=== PATIENT | female | born 1990 | race Caucasian/White ===

== ENCOUNTER 2016-12-07 06:42 | Day surgery (SDC) | payer OTHER ==
[2016-12-07] VITALS (11 sets, daily range): BP systolic 93–136; BP diastolic 48–86; PULSE 70–124; RESP 14–22; O2SAT 97–98
[~2016-12-07] VITALS: Ht 157.5 cm; Wt 76.2 kg
[~2016-12-07 06:42] MED LIST: MEDR150D9 IM
[2016-12-07] MEDS ORDERED: Dexamethasone 4 mg/mL Inj ONE (06:43)
[2016-12-07] MEDS ORDERED: fentaNYL-PF 50 mCg/mL 2 mL Inj ONE (06:43)
[2016-12-07] MEDS ORDERED: Ondansetron 2 mg/mL 2 mL Inj ONE (06:43)
[2016-12-07] MEDS ORDERED: Ketamine 10 mg/mL 20 mL Inj ONE (06:43)
[2016-12-07] MEDS ORDERED: Propofol 10,000 mCg/mL 20 mL Inj ONE (06:43)
[2016-12-07] MEDS: Lactated Ringer's 1,000 ML IV SCH ×3 (07:08→15:33)
--- NOTE | 2016-12-07 07:37 | PCM.HPANE ---
Patient Data Surgeon Admitting Provider: Attending Provider:Bart Thorne MD Primary Care Physician:Nathaly Person MD Other Provider:[facility] Reason for Visit Gallstones Ht/WT & BMI Height (Feet): 5 Height (Inches): 2 Weight (Kilograms): 76.2 Body Mass Index 30.00 Allergies Coded Allergies: promethazine (Verified Allergy, Severe, AGITATION, 12/04/16) Potassium Clavulanate (Verified Allergy, Unknown, UNKNOWN, 12/04/16) Sulfa (Sulfonamide Antibiotics) (Verified Allergy, Unknown, UNKNOWN, ) amoxicillin trihydrate (Verified Allergy, Unknown, UNKNOWN, 12/04/16) metoclopramide (Verified Allergy, Unknown, UNKNOWN, 12/04/16) Past Anesthesia History Anesthesia History: Positive for:: Fam Anesthesia Reaction ("Mom takes a lot of medication to stay asleep in procedure."), Denies:: Abnormal Airway, Anesthesia Reactions, Difficult Intubation, Fam Malignant Hypertherm, Malignant Hyperthermia Diabetes History Hx Diabetes?: No MRSA MRSA: No Medications Hypertension Medication: No Home Meds Incl Beta Maria Guadalupe: No Reported Medications Medroxyprogesterone Acetate (Depo-Provera)150 Mg/1 Ml [id number] Mg IM Q 3 MONTHS 12/04/16 Discontinued Reported Medications Acetaminophen 500 Mg Oixykj590 Mg PO Q6H PRN For Pain 07/16/16 Vit No.124/Iron/FA ( Vitamin Tablet)27 Mg Iron-800 Mcg Tablet1 Each PO DAILY 07/16/16 Hyoscyamine SL (Levsin SL)0.125 Mg Tab.subl0.125 Mg SL 01/26/14 Sertraline HCl (Zoloft)100 Mg [id number] Mg PO DAILY 30 Days Ref 0 01/26/14 Discontinued Scripts Hydrocodone-Acetaminophen 5-325 mg 1 Each Tablet1-2 Tablet PO Q4H PRN For Pain # 30 TABLET Prov:Alfred Kwok MD 07/17/16 Ibuprofen 600 Mg Blpira025 Mg PO Q6H PRN For Mild Pain #30 TABLET Prov:Alfred Kwok MD 07/17/16 History History of ENT Problems?: No HEENT History: Denies:: Abnormal Airway Difficult Intubation Hearing Problem Denture Type: None Teeth Condition: Within Normal Limits Hx of Heart Problems?: No Cardiovascular History: Denies:: Congestive Heart Failure Heart Murmur Hypertension Hx of Respiratory Problem?: No Respiratory History: Positive for:: Asthma ("I don't need my inhaler often" "exercise induced") Denies:: Tuberculosis Use of C-PAP Machine Hx Neurologic Problems?: Yes Neurological History: Positive for:: Headaches Denies:: CVA Hx of GI Problems?: Yes Hx of Problems?: Yes Other Pertinent History: SIMPLE RENAL CYST FOUND INCIDENTALLY ON U/S Female Hx: Denies:: Currently Skin History: Denies:: History Skin Disorders? Pressure Ulcers Hx Musculoskeletal Problems?: Yes Musculoskeletal History: Positive for:: Musculoskeletal Trauma (S/P RT KNEE SCOPE) Denies:: Back Injury (C/OF BACK PAIN) Hx of Psycho/Social Problems?: Yes Psycho Social History: Positive for:: Anxiety Hx Depression Hx Surgeries?: Yes (R knee) Hx Any Other Health Problems?: Yes Other History: Positive for:: Hospitalization ([facility]ILDBIR[facility]) Denies:: Cancer Endocrine Disease Thyroid Disease History Blood Transfusions: Denies:: Blood Transfusions Hx Diabetes: No Hx Alcohol Use: NoHx Substance Use: NoHave You Smoked inLast 12 mo: No Stop/Bang S-Snoring: Do You Snore Loudly: No T-Tired: feel tired, fatigued: Yes O-Obsered: Observed not breath: No P-Blood Pressure: treated: No B- Body Mass Index > 35 kg/m2: No A- Age over 50: No N- Neck Large Circumference: No G- Gender Male: No XIAO Total Score: 1 XIAO Risk Assessment: Low Risk, <3 Yes Risk Assessment Category Category 1A: Patient has history of documented sleep apnea, and HAS NOT received any narcotic, sedative or anesthesia administration during this stay. Category 1B: Patient has history of documented sleep apnea, and HAS received any narcotic , sedative or anesthesia administration during this stay Category 2: Patient has SUSPECTED Obstructive Sleep Apnea, and HAS received any narcotic , sedative or anesthesia administration during this stay. Category 3: Patient has SUSPECTED Obstructive Sleep Apnea and HAS NOT received narcotic, sedative or anesthesia administration during this stay. Category 4: Outpatient in Procedural Areas with known sleep apnea or who screen positive for High Risk via the STOP/BANG questionnaire. Exam Exam Vital Signs Vital Signs Date Time Temp Pulse Resp B/P Pulse Ox O2 Delivery O2 Flow Rate FiO2 5/12/17 07:13 36.5 98 16 98 Room Air General Appearance: Alert, Oriented X3, Cooperative, No Acute Distress HEENT/AIRWAY: MP 2 Lungs: Clear to Auscultation, Normal Air Movement Heart: Exam Unremarkable, Regular Rate/Rhythm, No Murmurs/Rubs/Gallops Meds/Labs/Diagnostics Admission Meds Current Medications Lactated Ringer's (Lr) 1,000 ml @ 120 mls/hr Q8H20M IV Last administered on 07:08; Start 12/07/16 at 05:00; Stop 12/07/16 at 13:19 Gabapentin (Neurontin) 600 mg PREOP ONCE PO Last administered on 12/07/16 07: 09; Start 12/07/16 at 06:00; Stop 12/07/16 at 06:01; Status DC Celecoxib (CeleBREX) 200 mg PREOP ONCE PO Last administered on 12/07/16 07:09 ; Start 12/07/16 at 06:00; Stop 12/07/16 at 06:01; Status DC Scopolamine (Transderm-Scop Patch) 1.5 mg ONCE ONCE TOPICAL Last administered on 12/07/16 07:09; Start 12/07/16 at 05:00; Stop 12/07/16 at 05:01; Status DC Plan Impression Patient chart reviewed, patient interviewed and anesthestic plan with risks, benefits, and alternatives discussed, and informed consent obtained. ASA Physical Status: ASA1 Normal Healthy Anesthetic Plan: GA Bene/Risks/Altern/Consents: Yes HP Complete Prior to Induction: Yes Donis Patel MD December 07, 2016 07:37
[2016-12-07] MEDS ORDERED: Lactated Ringer's 1,000 ML IV SCH (09:01)
[2016-12-07] MEDS ORDERED: Lactated Ringer's 500 ML IV PRN (09:01)
[2016-12-07] MEDS ORDERED: Bupivacaine-MPF 0.25%/EPI 30 mL Inj INFILTRATE ONE (09:03)
[2016-12-07] MEDS ORDERED: Phenylephrine 10,000 mCg/mL Inj IVPUSH PRN (09:05)
[2016-12-07] MEDS ORDERED: Dexamethasone 4 mg/mL Inj IVPUSH PRN (09:05)
[2016-12-07] MEDS ORDERED: HYDROmorphone 1 mg/mL Inj IVPUSH PRN (09:05)
[2016-12-07] MEDS ORDERED: Ondansetron 2 mg/mL 2 mL Inj IVPUSH PRN (09:05)
[2016-12-07] MEDS ORDERED: EPHEDrine Sulfate 50 mg/mL Inj IVPUSH PRN (09:05)
[2016-12-07] MEDS: fentaNYL-PF 50 mCg/mL 2 mL Inj IVPUSH PRN ×4 (10:23→11:49)
--- NOTE | 2016-12-07 10:34 | PCM.ANEP1 ---
Post Anesthesia Phase 1 PACU Phase 1 Assessment Vital Signs Vital Signs Date Time Temp Pulse Resp B/P Pulse Ox O2 Delivery O2 Flow Rate FiO2 12/07/16 10:05 74 22 96/50 97 Room Air 12/07/16 09:55 70 22 93/48 97 Room Air 12/07/16 09:45 78 20 98/48 98 Simple Mask 12/07/16 09:40 37.1 84 19 98/52 98 Simple Mask 8 12/07/16 07:13 36.5 98 16 98 Room Air Anesthetic Administered: GA Level of Alertness: Awake, talking DAVIS's with Equal Strength: Yes Pain: No Nausea or Vomiting: No Cardiovascular Function and Hy: Yes Airway Device: Oralpharangeal Airway Oxygen Delivery: Simple Mask Lungs: Clear to Auscultation, Normal Air Movement Dermatome Level: Full Sensation Complications: No Follow up Care: No Patient Instructions Provided: Yes Donis Patel MD December 07, 2016 10:34
[2016-12-07 12:21] LABS: Mean Corpuscular Hemoglobin 27.9 pg (27.0-35.0); Mean Corpuscular Volume 85.3 fL (81-100)
[2016-12-07] MEDS ORDERED: Acetaminophen IV 1,000 MG in IV Premix 1 EACH IV ONE (12:40)
[2016-12-07] MEDS ORDERED: Dextrose 5% Lactated Ringer's 1,000 ML IV SCH (13:08)
[2016-12-07] MEDS ORDERED: Ketorolac 15 mg/mL Inj IVPUSH ONE (13:10)
[2016-12-07] MEDS ORDERED: HYDROmorphone 0.5 mg/0.5 mL iSecure Syringe IVPUSH PRN (13:10)
--- NOTE | 2016-12-07 16:22 | OP ---
[address] [address] OPERATIVE REPORT PATIENT: JAKOB NOLEN : 1990 MR#: [id number] ADMIT: 12/07/2016 JOB ID: [id number] DATE OF SURGERY: 12/07/2016 ANESTHESIA: General. PREOPERATIVE DIAGNOSIS(ES): Symptomatic cholelithiasis. POSTOPERATIVE DIAGNOSIS(ES): Symptomatic cholelithiasis. OPERATIVE PROCEDURE: Laparoscopic cholecystectomy. SURGEON: Bart Thorne M.D. CAUSTICS LOADER: None. COMPLICATIONS: None. ESTIMATED BLOOD LOSS: Less than 5 mL. CONDITION: Satisfactory. SPECIMEN: Gallbladder. FINDINGS: The gallbladder appeared unremarkable. INDICATIONS/SIGNIFICANT HISTORY: The patient is a 26-year-old female who since giving four months ago has been experiencing episodic postprandial right upper quadrant abdominal pain. An ultrasound was obtained which showed cholelithiasis. She was referred to me and I recommended cholecystectomy. OPERATIVE TECHNIQUE: The patient was taken into the operating room and placed in the supine position. General anesthesia was administered. The abdomen was prepped and draped in a standard surgical fashion and a procedure pause was performed. Entry was gained into the abdomen through a supraumbilical incision using a 10 mm Optiview trocar. Pneumoperitoneum was achieved without complication. Local anesthetic was injected, followed by insertion of 5 mm ports in the subxiphoid as well as two in the right upper quadrant. The gallbladder was grasped and retracted cephalad. Dissection was begun to identify the cystic duct and cystic artery. Critical view of safety was achieved. Three clips placed on the duct and one on the artery. The duct was taken sharply and the artery with electrocautery. The remainder of the dissection of the gallbladder off the cystic plate was then completed. There was a little bit of bleeding from the lower portion of the cystic plate which was controlled with electrocautery. The gallbladder was then removed through the umbilical port site. The fascia there was closed with 0 PDS suture with a laparoscopic suture passer. The lateral ports were then removed under direct visualization followed by release of pneumoperitoneum and removal of the remaining port. The entire procedure was well tolerated without complication.
--- NOTE | 2016-12-10 14:50 | PATH ---
SURGICAL PATHOLOGY Attending Physician:Bart Thorne MD CASE STATUS: Signed Out PATIENT NAME: JAKOB NOLEN PID: [id number] : 1990 DATE COLLECTED:12/07/2016 15:27 SPECIMEN: Gallbladder CLINICAL HISTORY: GALLSTONES 1. GALLBLADDER FINAL DIAGNOSIS: 1.GALLBLADDER: CHOLELITHIASIS WITH ASSOCIATED MILD CHRONIC CHOLECYSTITIS. ICD10 CODE K80.66 GROSS DESCRIPTION: The specimen is received in one formalin filled container labeled with the patient's name, sublabeled "gallbladder" and consists of an intact 8.0 x 3.0 x 3.0 CM gallbladder. The serosa is smooth. The wall is 0.2-0.3 CM in thickness. The mucosa is a dark green in color. The lumen contains a dark green mucoid material and approximately 10 yellow-caldwell cobblestone calculi which range in size from 0.1-0.4 CM in greatest dimension. 5 direct customer service representative sections are submitted in one cassette. 12/07/2016 DAC MICRO DESCRIPTION: See diagnosis. ICD-9 CODES: CPT CODES: 1: 56884 Electronically Signed Out Ajith Chance MD [facility] [address], [place] [address] Technical component performed at [facility], [facility] [address], [place], [address]
== END 2016-12-07 23:59 | disposition home or self-care (01) ==
LOC: SAS 06:42
PROVIDERS: ATTEND General Practice
PROC: 0FT44ZZ Resection of Gallbladder, Percutaneous Endoscopic Approach (ICD-10-PCS; principal; 2016-12-07 08:30)
DX: K80.20 Calculus of gallbladder without cholecystitis without obstruction (principal); R00.0 Tachycardia, unspecified
CPT/HCPCS: 36415; 47562; 85027; 88304; 93005; J1100; J1170; J1885; J2250; J2405; J3010; J7120